=== PATIENT | male | born 1990 | race Caucasian/White ===

== ENCOUNTER 2019-05-27 08:38 | Emergency (ER) | payer OTHER ==
[2019-05-27 08:47] VITALS: BP 129/71; PULSE 75; TEMP 97.8; BMI 26.7
--- NOTE | 2019-05-27 09:10 | PDOC ---
History of Present Illness - General Chief Complaint: Injury Stated Complaint: WORK INJURY Time Seen by Provider: 05/27/19 08:48 History Source: Patient Exam Limitations: No Limitations Past History - Past Medical History Allergies/Adverse Reactions: Allergies Allergy/AdvReac Type Severity Reaction Status Date / Time No Known Allergies Allergy Verified 05/27/19 08:45 Home Medications: Ambulatory Orders NK [No Known Home Medication] 05/27/19 COPD: No - Immunization History Immunization Up to Date: No - Psycho Social/Smoking Cessation Hx Smoking History: Never smoked Hx Alcohol Use: No Drug/Substance Use Hx: No *Physical Exam - Vital Signs Last Vital Signs Temp Pulse Resp BP Pulse Ox 97.8 F 75 16 129/71 98 05/27/19 08:45 05/27/19 08:45 05/27/19 08:45 05/27/19 08:45 05/27/19 08:45 - Physical Exam General Appearance: No: Apparent Distress Respiratory/Chest: positive: Lungs Clear, Normal Breath Sounds. negative: Respiratory Distress Cardiovascular: positive: Regular Rhythm, Regular Rate, S1, S2. negative: Murmur Gastrointestinal/Abdominal: positive: Soft. negative: Tender Musculoskeletal: positive: Other (mild TTP along R lumbar paraspinal muscles). negative: Vertebral Tenderness Neurologic: positive: Alert, Other (normal gait) Medical Decision Making - Medical Decision Making 28 y/o M [employer] presents s/p R lower back pain radiating to buttock after picking up heavy person at work today. Denies fever, sob, cp, abd pain, n/v, numbness/tingling/weakness of extremities, bowel/bladder incontinence. Likely muscle strain Patient prefers not to take any medications 05/27/19 09:07 Discharge - Discharge Information Problems reviewed: Yes Clinical Impression/Diagnosis: Back strain Qualifiers: Encounter type: initial encounter Qualified Code(s): S39.012A - Strain of muscle, fascia and tendon of lower back, initial encounter Condition: Stable Disposition: HOME - Admission No - Additional Discharge Information Prescription Drug Monitoring Program (I-STOP) results: I-STOP not reviewed - Follow up/Referral - Patient Discharge Instructions Patient Printed Discharge Instructions: DI for Back Strain or Sprain Additional Instructions: Thank you for choosing [facility]. It was a pleasure taking care of you. Take Motrin 600 mg every 6 hours as needed for pain. Take with food. Heating pads/epsom salt baths may also help Follow-up with your doctor in 2 days Return to the Emergency Department if your symptoms worsen or persist or have other concerning symptoms. - Post Discharge Activity
== END 2019-05-27 09:14 | disposition home or self-care (01) ==
LOC: JERFT 08:38
DX: S39.012A Strain of muscle, fascia and tendon of lower back, initial encounter (principal); Y35.891A Legal intervention involving other specified means, law enforcement official injured, initial encounter; Y93.89 Activity, other specified; Y92.89 Other specified places as the place of occurrence of the external cause; Y99.0 Civilian activity done for income or pay
CPT/HCPCS: 99281-25

== ENCOUNTER 2019-12-19 03:55 | Emergency (ER) | payer OTHER ==
[2019-12-19] MEDS ORDERED: IBUPROFEN 600 MG TABLET (FP) PO ONE ×2 (03:59→04:03)
[2019-12-19] MEDS ORDERED: CYCLOBENZAPRINE HCL 5 MG TABLET PO ONE (03:59)
[2019-12-19] MEDS ORDERED: LIDOCAINE 5% TOPICAL PATCH TP ONE (03:59)
[2019-12-19 04:01] VITALS: BP 115/79; PULSE 74; TEMP 99; BMI 26.5
[2019-12-19] MEDS ORDERED: LIDOCAINE 5% TOPICAL PATCH ONE (04:03)
[2019-12-19] MEDS ORDERED: CYCLOBENZAPRINE HCL 10 MG TABLET (FP) ONE (04:03)
--- OUTSIDE RECORDS SUMMARY | 2019-12-19 04:07 | XMS ---
:1990 [facility] Providers Name Role Phone Erick Unavailable Unavailable Rima Hines Unavailable Unavailable Re-disclosure Warning The records that you are about to access may contain information from federally- assisted alcohol or drug abuse programs. If such information is present, then the following federally mandated warning applies: This information has been disclosed to you from records protected by federal confidentiality rules (42 CFR part 2). The federal rules prohibit you from making any further disclosure of this information unless further disclosure is expressly permitted by the written consent of the person to whom it pertains or as otherwise permitted by 42 CFR part 2. A general authorization for the release of medical or other information is NOT sufficient for this purpose. The Federal rules restrict any use of the information to criminally investigate or prosecute any alcohol or drug abuse patient.The records that you are about to access may contain highly sensitive health information, the redisclosure of which is protected by Article 27-F of the [facility] Public Health law. If you continue you may haveaccess to information: Regarding HIV / AIDS; Provided by facilities licensed or operated by the [facility] Office of Mental Health; or Provided by the [facility] Office for People With Developmental Disabilities. If such information is present, then the following [facility] mandated warning applies: This information has been disclosed to you from confidential records which are protected by state law. State law prohibits you from making any further disclosure of this information without the specific written consent of the person to whom it pertains, or as otherwise permitted by law. Any unauthorized further disclosure in violation of state law may result in a fine or custodial sentence or both. A general authorization for the release of medical or other information is NOT sufficient authorization for further disclosure. Allergies and Adverse Reactions Type Description Substance Reaction Status Data Source(s ) 3 NO KNOWN ALLERGIES Clindamycin 150 MG Oral NEXTGEN ([facility] Tablet [Clintabs] Medical - [facility]) Encounters Encounter Providers Location Date Indications Data Source(s ) Outpatient Attender: Jai Erick 09/20/2019 NEXT GEN ([facility] 12:43:00 PM Medical [facility] ) Outpatient Attender: Jai 09/12/2019 NEXTGEN ( [facility] JohnReferrer: 01:00:00 PM Medical - [facility]) Outpatient Attender: Bhavin 07/13/2019 NEXTGEN ([facility] GrossReferrer: 12:15:00 PM Medical - [facility]) Outpatient Attender: Bhavin 07/12/2019 NEXTGEN ([facility] 05:33:00 PM Medical - [facility]) Outpatient Attender: Bhavin 06/16/2019 NEXTGEN ([facility] 09:57:00 AM Medical [facility]) Outpatient Attender: Bhavin 06/15/2019 NEXTGEN ([facility] 02:04:00 PM Medical [facility]) Outpatient Attender: Bhavin 06/14/2019 NEXTGEN ([facility] 05:02:00 PM Medical [facility]) Outpatient Attender: Bhavin 06/03/2019 NEXTGEN ([facility] GrossReferrer: 11:15:00 AM Medical - [facility]) Outpatient Attender: Bhavin 07/12/2018 NEXTGEN ([facility] 07:14:00 PM Medical [facility]) Outpatient Attender: Bhavin 07/12/2018 NEXTGEN ([facility] GrossReferrer: 02:00:00 [facility] Insurance Providers Payer name Policy type Policy ID Covered Covered democrat's Policy P nu / Coverage democrat ID relationship to [place] Inf ormation type ban[place] [facility] [id number] [facility] [place] [id number] Plan [employer] WC UMR Risk [id number] 1 [id number] Management Temp WC [id number] [employer] RISK [id number] SP [id number] MANAGEMENT [facility] [place] [id number] Plan [employer] Problems, Conditions, and Diagnoses Code Display Name Description Problem Type Effective Dates Data Source(s) R53.83 Other fatigue Fatigue, Diagnosis 09/12/2019 NEXTGEN unspecified type 01:00:00 PM [facility] Z00.00 Encounter for Annual physical Diagnosis 09/12/2019 NEXTGE N general adult exam 01:00:00 PM EDT ([facility] ount medical [facility] examination [facility] without abnormal [facility] ) findings M54.5 Low back pain Acute right-sided Diagnosis 07/13/2019 NEXT GEN low back pain 12:15:00 PM EDT ([facility] ou without sciatica [facility]) Surgeries/Procedures Procedure Description Date Indications Data Source(s) PREV VISIT EST AGE PREV VISIT EST AGE 0609/12/2019 NEX TGEN ([facility] [id number] 18-39 12:00:00 AM [facility] EDT [facility]) OFFICE/OUTPATIENT OFFICE/OUTPATIENT 07/13/2019 NEXTG EN ([facility] VISIT EST VISIT EST 12:00:00 AM [facility])
--- NOTE | 2019-12-19 04:11 | PDOC ---
History of Present Illness - General Chief Complaint: Injury Stated Complaint: injury to lower back while working Time Seen by Provider: 12/19/19 03:59 History Source: Patient Exam Limitations: No Limitations - History of Present Illness Initial Comments: 12/19/19 04:07 HPI 29 y/o M [employer] presents s/p R lower back pain after bending over and picki ng up heavy person at work today. When he got up, there was a sharp right lower back pain, 8/10, nonradiating and worse with movement. Denies fall. Denies fever, sob, cp, abd pain, n/v, numbness/tingling/weakness of extremities, bowel/bladder incontinence. had a similar episode in May 2019 where he bent over at work and strained his lower back, had done PT and chiropractor, improved with minimal intervention Review of Systems Constitutional: no fevers or chills. Abdomen: no abdominal pain MUSCULOSKELETAL: No joint pain and swelling. No muscle pain/arthralgias. Back: + back pain SKIN: no redness or skin changes, no discharge, no rash. No wounds. Hematologic: no easy bruising/bleeding. NEUROLOGIC: No weakness, numbness or tingling. Allergic/Immunologic: no allergies All other systems reviewed and negative, or as documented in HPI. physical exam General: NAD, well appearing HEENT: NCAT, EOMI, PERRL. airway patent Resp: no distress, speaking full sentences. Abdomen: soft, no tenderness, nondistended Vascular: 2+ DP pulses symmetric and equal. Back: no midline tenderness, no stepoffs, FROM. +paraspinal right sided lumbar TTP MSK: notable for soft compartments, Cap refill <2 sec. Proximal and distal strength 5/5, plasterer stucco strength 5/5 - equal and symmetric. Plantar flexion and dorsiflexion 5/5. FROM. Sensation grossly intact to light touch. Neuro: alert, no focal neurologic deficits Skin: color normal color, warm and well perfused. Cap refill <2 sec. 12/19/19 04:20 Past History - Medical History Allergies/Adverse Reactions: Allergies Allergy/AdvReac Type Severity Reaction Status Date / Time No Known Allergies Allergy Verified 12/19/19 03:56 Home Medications: Ambulatory Orders Cyclobenzaprine HCl [Flexeril 10 mg] 10 mg PO TID PRN #15 tablet 12/19/19 Lidocaine 5% Patch [Lidoderm Patch -] 1 patch TP DAILY #7 patch 12/19/19 COPD: No - Immunization History Immunization Up to Date: No - Psycho-Social/Smoking History Smoking History: Never smoked Have you smoked in the past 12 months: No Information on smoking cessation initiated: No - Substance Abuse Hx (Audit-C & DAST Scrn) How often the patient has a drink containing alcohol: Monthly or less Score: In Men: 4 or > Positive; In Women: 3 or > Positive: 1 Screen Result (Pos requires Nsg. Audit-10AR): Negative In the last yr the pt used illegal drug/Rx for NonMed reason: No Score: Yes response is considered Positive: 0 Screen Result (Positive result requires Nsg. DAST-10): Negative *Physical Exam - Vital Signs Last Vital Signs Temp Pulse Resp BP Pulse Ox 99 F 74 18 115/79 98 12/19/19 03:58 12/19/19 03:58 12/19/19 03:58 12/19/19 03:58 12/19/19 03:58 Medical Decision Making - Medical Decision Making 12/19/19 04:08 Vital Signs Temp Pulse Resp BP Pulse Ox 99 F 74 18 115/79 98 12/19/19 03:58 12/19/19 03:58 12/19/19 03:58 12/19/19 03:58 12/19/19 03:58 Likely muscle strain/lumbago, from bending over no midline sx no red flag sx for back pain to suggest cord pathology. no fever, no neuro deficits, no procedures, no bowel or bladder abnormalities pt given analgesia instructions for rest and physical activity as tolerated otc analgesia flexeril prn. lido patch pt verbalized understanding of impression and plan DC stable condition, return precautions 12/19/19 04:21 Discharge - Discharge Information Problems reviewed: Yes Clinical Impression/Diagnosis: Lumbar back sprain Qualifiers: Encounter type: initial encounter Qualified Code(s): S33.5XXA - Sprain of ligaments of lumbar spine, initial encounter Condition: Stable Disposition: HOME - Admission No - Additional Discharge Information Prescriptions: Cyclobenzaprine HCl [Flexeril 10 mg] 10 mg PO TID PRN #15 tablet PRN Reason: Muscle Spasms Lidocaine 5% Patch [Lidoderm Patch -] 1 patch TP DAILY #7 patch - Follow up/Referral - Patient Discharge Instructions Patient Printed Discharge Instructions: DI for Low Back Pain, Exercise May Reduce Risk of Low Back Pain Additional Instructions: ORTHO INJURY You most likely have musculoskeletal strain/sprain of your lower back Avoid heavy lifting or strenuous activity to minimize further injury This should heal over the next 3-5 days. RICE rest ice elevate the affected area Rest, Ice (20 minutes at a time, 3 times a day), Compression (MANJINDER wrap or splint), Elevation (above the heart). Apply ice to the area for 10 minutes every 2 hours for the first 2 days after the injury to reduce swelling. continue with range of motion exercises, as this will facilitate the healing process; avoid being bed bound and immobile. If you have any worsening of symptoms, including severe pain/swelling/redness/numbness/changes in sensation/weakness/paralysis or any other concerns please return to the Emergency Department immediately. You were given a copy of the results from any tests performed today in the Emergency Department which have results available. Show these to your doctor(s). Some of the tests we sent may not have results yet so please call or have your doctor call the Emergency Department to follow up on all results. Please continue taking your home medications as directed. Do not use alcohol when taking any medication (especially antibiotics, tylenol or other pain medication) unless you check with the doctor or pharmacist. -flexeril is a muscle relaxant, take three times a day as needed may cause sleepiness, do not drive or operate machinery or take with alcohol. -topical lidoderm patch to the area affected, 12 hours on and 12 hours off.. -May take ibuprofen 400-600mg and/or tylenol 650 to 975 mg every 6 hours as needed for mild to moderate pain, available over the counter. This does not require narcotics, as it will precipitate injuries and falls. Please follow up with your primary doctor(s) within the next 1 week, but seek medical care sooner if your symptoms persist or worsen. Please call as soon as possible for an appointment. If you cannot follow up with your doctor please return to the Emergency Department for any urgent issues. Follow up with your primary care physician in 1 week if symptoms persist, or with orthopedics specialists if needed, referrals have been provided. - Post Discharge Activity Work/Back to School Note: Back to Work
== END 2019-12-19 04:14 | disposition home or self-care (01) ==
LOC: FER 03:55
DX: S33.5XXA Sprain of ligaments of lumbar spine, initial encounter (principal)
CPT/HCPCS: 99284-25

== ENCOUNTER 2021-04-15 07:53 | Emergency (ER) | payer OTHER ==
[2021-04-15 08:06] VITALS: BP 147/81; PULSE 81; TEMP 97.8; BMI 28.0
[2021-04-15] MEDS ORDERED: IBUPROFEN 600 MG TABLET (FP) PO ONE ×2 (08:16→08:26)
== END 2021-04-15 08:38 | disposition home or self-care (01) ==
LOC: JERFT 07:53
DX: M25.511 Pain in right shoulder (principal); Y35.811A Legal intervention involving manhandling, law enforcement official injured, initial encounter
CPT/HCPCS: 99283-25

== ENCOUNTER 2022-07-10 02:11 | Emergency (ER) | payer OTHER ==
[2022-07-10 02:17] VITALS: BP 133/87; PULSE 79; TEMP 98.7; BMI 26.7
[2022-07-10 02:34] VITALS: RESP 18
[2022-07-10] MEDS ORDERED: KETOROLAC TROMETHAMINE 30 MG/1 ML VIAL IM ONE (02:40)
[2022-07-10] MEDS ORDERED: IBUPROFEN 400 MG TABLET (FP) PO ONE ×2 (02:45→02:49)
== END 2022-07-10 03:25 | disposition home or self-care (01) ==
LOC: FER 02:11
DX: S33.5XXA Sprain of ligaments of lumbar spine, initial encounter (principal); M54.50 Low back pain, unspecified; X50.0XXA Overexertion from strenuous movement or load, initial encounter; Y99.0 Civilian activity done for income or pay
CPT/HCPCS: 99282-25

== ENCOUNTER 2023-08-26 04:07 | Emergency (ER) | payer OTHER ==
[2023-08-26 04:24] VITALS: BP 130/83; PULSE 64; RESP 16; TEMP 98; BMI 27.0
[2023-08-26] MEDS ORDERED: IBUPROFEN 600 MG TABLET (FP) PO ONE (04:31)
[2023-08-26] MEDS: IBUPROFEN 600 MG TABLET (FP) PO ONE (04:33)
== END 2023-08-26 04:40 | disposition home or self-care (01) ==
LOC: FER 04:07
DX: S33.5XXA Sprain of ligaments of lumbar spine, initial encounter (principal); X50.0XXA Overexertion from strenuous movement or load, initial encounter
CPT/HCPCS: 99283-25

== ENCOUNTER 2024-07-15 01:22 | Emergency (ER) | payer BC, OTHER ==
[2024-07-15 01:40] VITALS: BP 126/88; PULSE 66; RESP 18; TEMP 98.4; BMI 27.3
[2024-07-15 02:40] LABS: ABSOLUTE IMMATURE GRANULOCYTES 0.03 x10^3/uL (0.0-0.031); BASOPHILS # 0.05 x10^3/uL (0.01-0.08); EOSINOPHIL % 1.1 % (0.8-7.0); HEMATOCRIT 51.6 % (40.1-51.0); HEMOGLOBIN 17.3 g/dL (13.7-17.5); MCHC 33.5 g/dl (32.3-36.5); MEAN CELL VOLUME 87.6 fl (79.0-92.2); MEAN PLT VOLUME 9.8 fl (9.4-12.4); MONOCYTE # 0.87 x10^3/uL (0.30-0.82); MONOCYTE % 9.5 % (5.3-12.2); PLATELET COUNT 248 x10^3/uL (163-337); RDW 12.1 % (12.0-15.6)
[2024-07-15 03:03] LABS: ALBUMIN 4.8 g/dl (3.4-5.0); BLOOD UREA NITROGEN 16.2 mg/dL (7-18); CALCIUM 9.9 mg/dL (8.5-10.1)
[2024-07-15 03:06] LABS: CREATININE 1.1 mg/dL (0.55-1.3)
[2024-07-15 03:08] LABS: BILIRUBIN,TOTAL 0.8 mg/dL (0.2-1); TOT PROT 8.3 g/dl (6.4-8.2)
[2024-07-15 03:33] LABS: SYPHILIS W/ RPR CONF NON-REACTIVE (NONREACTIVE)
[2024-07-15 04:02] LABS: HCV DIAGNOSTIC IN-HOUSE W/RFLX NON-REACTIVE (NONREACTIVE); HIV INTERPRETATION NEGATIVE (NEGATIVE)
[2024-07-15 14:03] LABS: HEPATITIS B SURF AG NON-MATERN NON-REACTIVE (NONREACTIVE)
== END 2024-07-15 02:55 | disposition home or self-care (01) ==
LOC: JER 01:22
DX: Z77.21 Contact with and (suspected) exposure to potentially hazardous body fluids (principal)
CPT/HCPCS: 36415; 80053; 85025; 86704; 86780; 86803; 87340; 87389; 87517; 99283-25